=== PATIENT | female | born 1990 | race Caucasian/White ===

== ENCOUNTER 2019-09-21 08:15 | Emergency (ER) | payer OTHER ==
[~2019-09-21] VITALS: Ht 157.5 cm; Wt 73.6 kg
[2019-09-21] MEDS ORDERED: MULT-658 PO (08:45)
[2019-09-21] MEDS ORDERED: MELA5TAB14 PO (08:45)
[2019-09-21] MEDS ORDERED: ONDANSETRON 2MG/ML, 2ML IVPush ONE ×2 (09:00→13:00)
[2019-09-21] MEDS ORDERED: MORPHINE SULFATE 4 MG/ML, 1ML ONE ×2 (09:10→11:04)
[2019-09-21] MEDS ORDERED: ONDANSETRON 2MG/ML, 2ML ONE ×2 (09:10→12:58)
[2019-09-21 09:12] LABS: BASOPHILS # (AUTO) 0.01 x10^3/uL (0-0.1); BASOPHILS % (AUTO) 0 % (0-1); EOSINOPHILS # (AUTO) 0.06 x10^3/uL (0-0.4); EOSINOPHILS % (AUTO) 1 % (1-7); LYMPHOCYTES # (AUTO) 1.04 x10^3/uL (1-3.4); LYMPHOCYTES % (AUTO) 8 % (22-44); MD NO; MEAN CORPUSCULAR HEMOGLOBIN 32.6 pg (27.0-34.8); MEAN CORPUSCULAR HGB CONC 34.2 g/dL (32.4-35.8); MEAN CORPUSCULAR VOLUME 95.3 fL (80-100); MEAN PLATELET VOLUME 7.7 fL (7.4-10.4); MONOCYTES # (AUTO) 0.18 x10^3/uL (0.2-0.8); MONOCYTES % (AUTO) 1 % (2-9); NEUTROPHILS % (AUTO) 90 % (42-75); PLATELET COUNT 333 x10^3/uL (130-400); RED BLOOD COUNT 4.39 x10^6/uL (3.82-5.3); RED CELL DISTRIBUTION WIDTH 12.7 % (9.6-15.2)
[2019-09-21] MEDS: MORPHINE SULFATE 4 MG/ML, 1ML IVPush PRN ×2 (09:14→11:06)
--- NOTE | 2019-09-21 09:17 | NUR ---
REPORT RECEIEVED AT BEDSIDE FROM REGAN PETERS. PT REPORTS 10/ LEFT FLANK PAIN, PIV EST BY REGAN PETERS, PT MEDICATED PER EMAR BY THIS RN. PT A&O, REPSS EVEN AND UNLABORED, PT GRIMACING IN PAIN. BP AND SPO2 MONITORS IN PLACE . FATHER AT BEDSIDE. PT AND FATHER UPDATED WITH POC.
[2019-09-21 09:19] LABS: ALANINE AMINOTRANSFERASE 15 U/L (12-78); ALBUMIN 3.7 g/dL (3.4-5.0); ANION GAP 6 mmol/L (5-15); CALCIUM 8.7 mg/dL (8.5-10.1); CHLORIDE 110 mmol/L (98-107); CREATININE 0.85 mg/dL (0.55-1.02)
[2019-09-21 09:23] LABS: ALKALINE PHOSPHATASE 84 U/L (45-117); BILIRUBIN,TOTAL 0.5 mg/dL (0.2-1.0); TOTAL PROTEIN 7.7 g/dL (6.4-8.2)
[2019-09-21 09:28] LABS: MICROSCOPIC INDICATED
[2019-09-21 09:42] LABS: CULTURE INDICATED? YES
--- NOTE | 2019-09-21 09:50 | NUR ---
TRISTAN Hazel at bedside explaining results and POC to patient and father. pt awaiting CT and dispo at this time.
[2019-09-21] MEDS ORDERED: SODIUM CHLORIDE FLUSH 10ML SYR IVF ONE (10:00)
--- NOTE | 2019-09-21 10:07 | NUR ---
pt a&o, resps even and unlabored, reports flank pain tolerable at this time. pt declines second dose morphine at this time. awaiting CT and dispo.
--- NOTE | 2019-09-21 11:05 | NUR ---
REPORT GIVEN TO AYANA ENGEL. TRISTAN ALICIA NOTIFIED PT MEETING CRITERIA FOR SEPSIS, TRISTAN DISCUSSING RESULTS WITH PT, AWAITING FURTHER ORDERS.
--- NOTE | 2019-09-21 11:07 | NUR ---
BREAK RN: PT MED NOTED FOR LEFT FLANK PAIN.
[2019-09-21] MEDS ORDERED: CEFTRIAXONE PMX 1GM/50ML 50 ML ONE (11:09)
[2019-09-21] MEDS ORDERED: CEFTRIAXONE PMX 1GM/50ML 50 ML IV ONE (12:00)
--- NOTE | 2019-09-21 12:52 | NUR ---
rocephin infusion completed, pt reports return of severe flank pain. CORNEL Schmidt notified. Dilaudid order received.
[2019-09-21] MEDS ORDERED: HYDROmorphone 1 MG/ML, 1ML INJ ONE (12:58)
[2019-09-21] MEDS ORDERED: HYDROmorphone 2 MG/ML, 1ML IVPush PRN (13:00)
[2019-09-21 13:41] VITALS: BP 126/89
== END 2019-09-21 13:43 | disposition home or self-care (01) ==
LOC: ED 13:32
DX: N10 Acute pyelonephritis (principal); F12.10 Cannabis abuse, uncomplicated
CPT/HCPCS: 36415; 74176; 80053; 81001; 84703; 85025; 87077; 87086; 96365; 96375; 96376; 99284; J0696; J1170; J2270; J2405; 87186